=== PATIENT | male | born 1965 | race American Indian/Alaskan Native ===

== ENCOUNTER 2016-05-04 15:44 | Emergency (ER) | payer OTHER ==
[2016-05-04 17:52] LABS: Basophils % (Auto) 0.7 % (0.0-1.8); Eosinophils % (Auto) 2.3 % (0.0-4.3); Hematocrit 42.3 % (35.5-45.6); Hemoglobin 14.5 gm/dl (11.8-15.2); Mean Corpuscular HGB Conc 34 % (32-34); Mean Corpuscular Hemoglobin 30 pg (28-32); Mean Corpuscular Volume 87 fl (84-94); Platelet Count 245 K/mm3 (140-440); Red Blood Count 4.85 M/mm3 (3.65-5.03); Red Cell Distribution Width 12.9 % (13.2-15.2); White Blood Count 6.7 K/mm3 (4.5-11.0)
--- NOTE | 2016-05-04 17:58 | Emergency Department Report ---
Chief Complaint: Abdominal Pain Stated Complaint: SEVERE ABD PAIN - HPI History of Present Illness: 50-year-old male complaining of one week of right-sided abdominal pain denies fever chills nausea or vomiting no diarrhea and bowels normally she states she' s had this in the past - ROS Review of Systems: History of abdominal pain - Exam Vital Signs: Vital Signs 05/04/16 16:08 Temperature 98.4 F Pulse Rate 64 Respiratory 16 Rate Blood Pressure 129/79 O2 Sat by Pulse 100 Oximetry Physical Exam: Right-sided abdominal pain MSE screening note: Focused history and physical exam performed. Due to findings the following was ordered: Screening Assessment/Plan/Differential Dx: Abdominal pain 1- This initial assessment/diagnostic orders/clinical plan/ treatment(s) is/are subject to change based on pt's health status, clinical progression and re- assessment by fellow clinical providers in the ED. Further treatment and workup at subsequent clinical provers discretion. Patient/guardians urged not to elope from ED as their condition may be serious if not clinically assessed and managed. 2-labs, UA, non-con abdominal CT ED Medical Decision Making - Lab Data Result diagrams: 05/04/16 17:36 05/04/16 17:36 ED Disposition for MSE Condition: Stable
[2016-05-04 18:10] LABS: Alanine Aminotransferase 18 units/L (7-56); Albumin 4.6 g/dL (3.9-5); Albumin/Globulin Ratio 1.6 %; Alkaline Phosphatase 58 units/L (35-129); Anion Gap 16 mmol/L; BUN/Creatinine Ratio 16.66; Bilirubin,Total 0.3 mg/dL (0.1-1.2); Blood Urea Nitrogen 15 mg/dL (9-20); Calcium 9.4 mg/dL (8.4-10.2); Carbon Dioxide 27 mmol/L (22-30); Chloride 100.4 mmol/L (98-107); Glucose 86 mg/dL (75-100); Lipase 42 units/L (13-60); Potassium 4.2 mmol/L (3.6-5.0); Sodium 139 mmol/L (137-145); Total Protein 7.4 g/dL (6.3-8.2)
[2016-05-04 18:12] LABS: Bilirubin,Direct < 0.2 mg/dL (0-0.2); Bilirubin,Indirect 0.1 mg/dL
[2016-05-04 18:16] LABS: Bilirubin,Urine NEG (Negative); Blood,Urine NEG (Negative); Ketones,Urine NEG (Negative); Leukocyte Esterase,Urine NEG (Negative); Mucus,Urine FEW /HPF; Nitrite,Urine NEG (Negative); Protein,Urine <15 mg/dL mg/dL (Negative); Urobilinogen,Urine < 2.0 mg/dL (<2.0)
--- NOTE | 2016-05-04 19:07 | Cat Scan Report ---
FINAL REPORT PROCEDURE: CT ABDOMEN PELVIS WO CON TECHNIQUE: Computerized axial tomography of the abdomen and pelvis was performed without intravenous contrast. This study is performed without intravascular contrast material and its sensitivity for abdominal and pelvic pathology, including neoplasms, inflammation, abscess, free fluid, thrombosis, arterial dissection and infarction, is reduced compared with a contrast enhanced study. HISTORY: Abdominal Pain COMPARISON: Prior CT scan abdomen and pelvis 06/09/2015 FINDINGS: Lower Lung hedrick: No sinificant abnormality seen. Upper Abdomen: The liver is unremarkable. Gallbladder is contracted otherwise unremarkable. The spleen is not enlarged. Small nonspecific calcifications measuring a few millimeters are seen in the right adrenal gland which are unchanged. No adrenal masses are identified. The pancreas show no abnormality. Kidneys, Ureters and Urinary bladder: No abnormalities are seen. Urinary bladder is only partially filled although otherwise unremarkable. Retroperitoneum: Atherosclerotic changes are seen in the abdominal aorta. No aneurysm is visualized. Nonspecific subcentimeter lymph nodes are seen in the retroperitoneum. No pathologically enlarged lymph nodes are identified. Bowel: No acute abnormalities are seen. No evidence of bowel obstruction ascites or free intraperitoneal gas. Normal-appearing appendix is seen in the right lower quadrant. Minimal umbilical hernia containing adipose tissue is visualized. No herniated loops of bowel are seen. Small right inguinal hernia present containing adipose tissue. No herniated loops of bowel are seen. No acute bony abnormality is seen. IMPRESSION: Small umbilical and small right inguinal hernias present as described. No acute abnormalities are identified.
[2016-05-04] MEDS ORDERED: TYLENOL PO ONE (23:22)
--- NOTE | 2016-05-05 06:47 | Emergency Department Report ---
ED Abdominal Pain HPI - General Chief Complaint: Abdominal Pain Stated Complaint: burning right upper quadrant Time Seen by Provider: 05/05/16 06:39 Source: family Mode of arrival: Ambulatory Limitations: No Limitations - History of Present Illness Initial Comments: The patient has had extensive testing presumably a CT and ultrasound for his chronic abdominal pain. He describes it as a right upper quadrant burning. It is recurred for the past 3 days intermittently. He has had it for several months. He states he's had colon polyps removed and sees a GI specialist. He has had no recent fever. He denies nausea vomiting diarrhea or any respiratory type symptoms or cough. He states he's not had a rash in that area. I found him sleeping at the time of my encounter. Upon awakening, he was note in no distress. MD Complaint: abdominal pain -: month(s) Location: RUQ Radiation: none Migration to: no migration Severity: mild, moderate Quality: burning Consistency: constant Improves With: nothing Worsens With: nothing Associated Symptoms: denies other symptoms - Related Data Previous Rx's Medication Instructions Recorded Last Taken Type traMADol [Ultram] 50 mg PO Q6HR PRN #14 tablet 05/05/16 Unknown Rx Allergies Allergy/AdvReac Type Severity Reaction Status Date / Time No Known Allergies Allergy Unverified 09/02/13 15:50 ED Review of Systems ROS: Stated complaint: SEVERE ABD PAIN Other details as noted in HPI Constitutional: denies: chills, fever Eyes: denies: eye pain, eye discharge, vision change ENT: denies: ear pain, throat pain Respiratory: denies: cough, shortness of breath, wheezing Cardiovascular: denies: chest pain, palpitations Endocrine: no symptoms reported Gastrointestinal: abdominal pain. denies: nausea, diarrhea Genitourinary: denies: urgency, dysuria Musculoskeletal: denies: back pain, joint swelling, arthralgia Skin: denies: rash, lesions Neurological: denies: headache, weakness, paresthesias Psychiatric: denies: anxiety, depression Hematological/Lymphatic: denies: easy bleeding, easy bruising ED Past Medical Hx - Past Medical History Previous Medical History?: Yes Hx Hypertension: Yes (NEW ONSET, no meds) Hx GERD: Yes - Surgical History Past Surgical History?: No - Social History Smoking Status: Never Smoker Substance Use Type: None - Medications Home Medications: Home Medications Medication Instructions Recorded Confirmed Last Taken Type traMADol [Ultram] 50 mg PO Q6HR PRN #14 tablet 05/05/16 Unknown Rx ED Physical Exam - General Limitations: No Limitations General appearance: alert, in no apparent distress - Head Head exam: Present: atraumatic, normocephalic - Eye Eye exam: Present: normal appearance. Absent: scleral icterus - ENT ENT exam: Present: mucous membranes moist - Neck Neck exam: Present: normal inspection - Respiratory Respiratory exam: Present: normal lung sounds bilaterally. Absent: respiratory distress - Cardiovascular Cardiovascular Exam: Present: regular rate, normal rhythm. Absent: systolic murmur, diastolic murmur, rubs, gallop - GI/Abdominal GI/Abdominal exam: Present: soft, normal bowel sounds. Absent: distended, tenderness, guarding, rebound, rigid, organomegaly, mass, bruit, pulsatile mass , hernia - Rectal Rectal exam: Present: deferred - Extremities Exam Extremities exam: Present: normal inspection - Back Exam Back exam: Present: normal inspection. Absent: CVA tenderness (R), CVA tenderness (L), muscle spasm, paraspinal tenderness, vertebral tenderness - Neurological Exam Neurological exam: Present: alert, oriented X3, CN II-XII intact. Absent: motor sensory deficit - Psychiatric Psychiatric exam: Present: normal affect, normal mood - Skin Skin exam: Present: warm, dry, intact, normal color. Absent: rash ED Course Vital Signs 05/04/16 05/04/16 05/05/16 16:08 23:19 01:45 Temperature 98.4 F 98.6 F 98.9 F Pulse Rate 64 59 L 73 Respiratory 16 20 16 Rate Blood Pressure 129/79 Blood Pressure 143/78 131/83 [Right] O2 Sat by Pulse 100 100 100 Oximetry 05/05/16 06:00 Temperature 97.9 F Pulse Rate 56 L Respiratory 16 Rate Blood Pressure Blood Pressure 127/67 [Right] O2 Sat by Pulse 100 Oximetry ED Medical Decision Making - Lab Data Result diagrams: 05/04/16 17:36 05/04/16 17:36 Laboratory Results - last 24 hr 05/04/16 05/04/16 05/04/16 17:00 17:36 17:36 WBC 6.7 RBC 4.85 Hgb 14.5 Hct 42.3 MCV 87 MCH 30 MCHC 34 RDW 12.9 L Plt Count 245 Lymph % (Auto) 44.[address] [place] % (Auto) 7.7 H Eos % (Auto) 2.3 Baso % (Auto) 0.7 Lymph # 3.0 [place] # 0.5 Eos # 0.2 Baso # 0.0 Seg Neutrophils % 44.4 Seg Neutrophils # 3.0 Sodium Potassium Chloride Carbon Dioxide Anion Gap BUN Creatinine Estimated GFR BUN/Creatinine Ratio Glucose Lactic Acid Calcium Total Bilirubin Direct Bilirubin Indirect Bilirubin AST ALT Alkaline Phosphatase Total Creatine Kinase Total Protein Albumin Albumin/Globulin Ratio Amylase 68 Lipase Urine Color Yellow Urine Turbidity Clear Urine pH 6.0 Ur Specific [place] 1.016 Urine Protein <15 mg/dl Urine Glucose (UA) Neg Urine Ketones Neg Urine Blood Neg Urine Nitrite Neg Urine Bilirubin Neg Urine Urobilinogen < 2.0 Ur Leukocyte Esterase Neg Urine WBC (Auto) 0.0 Urine RBC (Auto) 1.0 Urine Mucus Few 05/04/16 05/04/16 05/04/16 17:36 17:36 17:36 WBC RBC Hgb Hct MCV MCH MCHC RDW Plt Count Lymph % (Auto) [place] % (Auto) Eos % (Auto) Baso % (Auto) Lymph # [place] # Eos # Baso # Seg Neutrophils % Seg Neutrophils # Sodium 139 Potassium 4.2 Chloride 100.4 Carbon Dioxide 27 Anion Gap 16 BUN 15 Creatinine 0.9 Estimated GFR > 60 BUN/Creatinine Ratio 16.66 Glucose 86 Lactic Acid 1.5 Calcium 9.4 Total Bilirubin 0.3 Direct Bilirubin < 0.2 Indirect Bilirubin 0.1 AST 18 ALT 18 Alkaline Phosphatase 58 Total Creatine Kinase 291 H Total Protein 7.4 Albumin 4.6 Albumin/Globulin Ratio 1.6 Amylase Lipase 42 Urine Color Urine Turbidity Urine pH Ur Specific [place] Urine Protein Urine Glucose (UA) Urine Ketones Urine Blood Urine Nitrite Urine Bilirubin Urine Urobilinogen Ur Leukocyte Esterase Urine WBC (Auto) Urine RBC (Auto) Urine Mucus - Radiology Data Radiology results: report reviewed interpreted by me: Small incidental right inguinal and periumbilical hernia. Critical care attestation.: If time is entered above; I have spent that time in minutes in the direct care of this critically ill patient, excluding procedure time. ED Disposition Clinical Impression: Hernia Abdominal pain Qualifiers: Abdominal location: right upper quadrant Qualified Code(s): R10.11 - Right upper quadrant pain Disposition: DISCHARGED TO HOME OR SELFCARE Is pt being admited?: No Does the pt Need Aspirin: No Condition: Stable Instructions: Abdominal Pain (ED), Inguinal Hernia (ED), Umbilical Hernia (ED) Additional Instructions: Return as needed any acute change or problem. See your usual GI specialist. You do have some small hernias which really had nothing to do with your pain in the rub her right side of her abdomen. I am going to give you the name of a surgeon who could give you advice on those. Prescriptions: traMADol [Ultram] 50 mg PO Q6HR PRN #14 tablet PRN Reason: Pain Referrals: usual, GI [Other] - 3-5 Days STEVE FRASER MD [Primary Care Provider] - 3-5 Days LONG MALDONADO MD [Staff Physician] - 3-5 Days Time of Disposition: 07:28
[2016-05-05 08:17] VITALS: BP 126/72
== END 2016-05-05 07:50 | disposition home or self-care (01) ==
LOC: ED 15:44
DX: K46.9 Unspecified abdominal hernia without obstruction or gangrene (principal); R10.11 Right upper quadrant pain; I10 Essential (primary) hypertension; K21.9 Gastro-esophageal reflux disease without esophagitis
CPT/HCPCS: 36415; 74176; 80048; 80074; 81001; 82140; 82150; 82550; 83690; 85025; 87086

== ENCOUNTER 2018-07-12 16:54 | Emergency (ER) | payer OTHER ==
--- NOTE | 2018-07-12 17:08 | Emergency Department Report ---
Blank Doc - Documentation Documentation: This is a 53-year-old male that presents with uncontrolled HTN and headaches. Stated headache is minimal about 5/10. Denies worst headache or tunderclap headache. This initial assessment/diagnostic orders/clinical plan/treatment(s) is/are subject to change based on patient's health status, clinical progression and re- assessment by fellow clinical providers in the ED. Further treatment and workup at subsequent clinical providers discretion. Patient/guardians urged not to elope from the ED as their condition may be serious if not clinically assessed and managed. Initial orders include: 1- Patient sent to [facility] for further evaluation and treatment
[2018-07-12 21:04] VITALS: BP 141/59
[2018-07-12] MEDS ORDERED: BENADRYL PO ONE (21:33)
[2018-07-12] MEDS ORDERED: REGLAN PO ONE (21:33)
[2018-07-12] MEDS ORDERED: DECADRON IM ONE (21:33)
[2018-07-12] MEDS ORDERED: TYLENOL PO ONE (21:33)
--- NOTE | 2018-07-12 22:07 | Emergency Department Report ---
ED Headache HPI - General Chief Complaint: Headache Stated Complaint: HBP/HEADACHE Time Seen by Provider: 07/12/18 17:06 - History of Present Illness Initial Comments: This is a 53-year-old male that presents with uncontrolled HTN and headaches. Stated headache is minimal about 5/10. Denies worst headache or tunderclap headache. Timing/Duration: 1-3 hours Quality: moderate Recent Head Trauma: occasional headaches Allergies/Adverse Reactions: Allergies No Known Allergies Allergy (Unverified 09/02/13 15:50) Home Medications: Ambulatory Orders traMADol [Ultram] 50 mg PO Q6HR PRN #14 tablet 05/05/16 Acetaminophen [Tylenol Extra Strength] 1,000 mg PO QID PRN #30 tablet 07/12/18 Metoclopramide [Reglan] 10 mg PO Q6H PRN #30 tablet 07/12/18 diphenhydrAMINE [Benadryl CAP] 25 mg PO Q6HR PRN #30 capsule 07/12/18 ED Review of Systems ROS: Stated complaint: HBP/HEADACHE Other details as noted in HPI Constitutional: denies: chills, fever Eyes: denies: eye pain, eye discharge, vision change ENT: denies: ear pain, throat pain Respiratory: denies: cough, shortness of breath, wheezing Cardiovascular: as per HPI Endocrine: no symptoms reported Gastrointestinal: denies: abdominal pain, nausea, diarrhea Genitourinary: denies: urgency, dysuria Musculoskeletal: denies: back pain, joint swelling, arthralgia Skin: denies: rash, lesions Neurological: headache. denies: weakness, paresthesias Psychiatric: denies: anxiety, depression Hematological/Lymphatic: denies: easy bleeding, easy bruising ED Past Medical Hx - Past Medical History Hx Hypertension: Yes (NEW ONSET, no meds) Hx GERD: Yes - Social History Smoking Status: Never Smoker Substance Use Type: Alcohol - Medications Home Medications: Home Medications Medication Instructions Recorded Confirmed Last Taken Type traMADol [Ultram] 50 mg PO Q6HR PRN #14 tablet 05/05/16 Unknown Rx Acetaminophen [Tylenol Extra 1,000 mg PO QID PRN #30 tablet 07/12/18 Unknown Rx Strength] Metoclopramide [Reglan] 10 mg PO Q6H PRN #30 tablet 07/12/18 Unknown Rx diphenhydrAMINE [Benadryl CAP] 25 mg PO Q6HR PRN #30 capsule 07/12/18 Unknown Rx ED Physical Exam - General Limitations: No Limitations General appearance: alert, in no apparent distress - Head Head exam: Present: atraumatic, normocephalic - Eye Eye exam: Present: normal appearance, PERRL, EOMI - ENT ENT exam: Present: normal orophraynx, mucous membranes moist, TM's normal bilaterally, normal external ear exam - Neck Neck exam: Present: normal inspection - Respiratory Respiratory exam: Present: normal lung sounds bilaterally. Absent: respiratory distress, wheezes, stridor, chest wall tenderness - Cardiovascular Cardiovascular Exam: Present: regular rate, normal rhythm, normal heart sounds. Absent: systolic murmur, diastolic murmur, rubs, gallop - GI/Abdominal GI/Abdominal exam: Present: soft, normal bowel sounds. Absent: distended, tenderness, bruit, hernia - Rectal Rectal exam: Present: deferred - Extremities Exam Extremities exam: Present: normal inspection, full ROM, normal capillary refill. Absent: tenderness, pedal edema, joint swelling, calf tenderness - Back Exam Back exam: Present: normal inspection, full ROM. Absent: tenderness, CVA tenderness (R), CVA tenderness (L), muscle spasm, rash noted - Neurological Exam Neurological exam: Present: alert, oriented X3, CN II-XII intact, normal gait, reflexes normal. Absent: motor sensory deficit - Expanded Neurological Exam Expanded Patient oriented to: Present: person, place, time Speech: Present: fluid speech Cranial nerves: EOM's Intact: Normal, Gag Reflex: Normal, Tongue Deviation: Normal, Nystagmus: Normal, Facial Sensation: Normal, Facial Palsy with Forehead Movement: Normal, Facial Palsy without Forehead Movement: Normal Cerebellar function: Finger to Nose: Normal, Heel to Willis: Normal, Romberg: Normal Upper motor neuron: Ellis Neglect: Normal, Pronator Drift: Normal, Babinski Sign: Normal, Sensory Extinction: Normal Sensory exam: Upper Extremity Light Touch: Normal, Upper Extremity Pin Prick: Normal, Upper Extremity Temperature: Normal, UE 2 Point Discrimination: Normal, Lower Extremity Light Touch: Normal, Lower Extremity Pin Prick: Normal, Lower Extremity Temperature: Normal, LE 2 Point Discrimination: Normal Motor strength exam: RUE: 5, LUE: 5, RLE: 5, LLE: 5 DTR: bicep (R): 0, bicep (L): 0, tricep (R): 0, tricep (L): 0, knee (R): 0, knee (L): 0, ankle (R): 0, ankle (L): 0 Best Eye Response (Sushil): (4) open spontaneously Best Motor Response ([place]): (6) obeys commands Best Verbal Response ([place]): (5) oriented Sushil Total: 15 - Psychiatric Psychiatric exam: Present: normal affect, normal mood - Skin Skin exam: Present: warm, dry, intact, normal color. Absent: rash ED Course Vital Signs 07/12/18 07/12/18 07/12/18 17:06 21:03 21:45 Temperature 98.1 F 98.1 F Pulse Rate 54 L 49 L Respiratory 16 16 16 Rate Blood Pressure 165/85 Blood Pressure 141/59 [Left] O2 Sat by Pulse 98 96 Oximetry ED Medical Decision Making - Medical Decision Making Patient's symptoms resolved with medications given in emergency plan patient home in stable condition prescription for Tylenol and Benadryl Reglan patient will follow up with PCP in 2 days for hypertension management . No symptoms of hypertension at this time no dizziness no headache no nausea vomiting no chest pain patient is alert and oriented ambulatory with no acute distress at this time patient DC'd to home in stable condition , noted hr is baseline for this patient multiple ekgs with hr: 45-50 bpm Critical care attestation.: If time is entered above; I have spent that time in minutes in the direct care of this critically ill patient, excluding procedure time. ED Disposition Clinical Impression: Headache Qualifiers: Headache type: unspecified Headache chronicity pattern: acute headache Intractability: not intractable Qualified Code(s): R51 - Headache Disposition: DC-01 TO HOME OR SELFCARE Is pt being admited?: No Does the pt Need Aspirin: No Condition: Stable Instructions: Acute Headache (ED) Prescriptions: diphenhydrAMINE [Benadryl CAP] 25 mg PO Q6HR PRN #30 capsule PRN Reason: Headache Metoclopramide [Reglan] 10 mg PO Q6H PRN #30 tablet PRN Reason: Headache Acetaminophen [Tylenol Extra Strength] 1,000 mg PO QID PRN #30 tablet PRN Reason: Headache Referrals: STEVE FRASER MD [Primary Care Provider] - 3-5 Days Forms: Work/School Release Form(ED) Time of Disposition: 22:19
== END 2018-07-12 22:28 | disposition home or self-care (01) ==
LOC: ED 16:54
DX: R51 Headache (principal); I10 Essential (primary) hypertension; K21.9 Gastro-esophageal reflux disease without esophagitis
CPT/HCPCS: 96372; 99282; J1100